=== PATIENT | male | born 1965 | race Caucasian/White ===

== ENCOUNTER 2018-02-08 02:34 | Emergency (ER) | payer BC ==
[2018-02-08] MEDS ORDERED: SODIUM CHLORIDE 0.9% 500 ML 500 ML IV ONE (03:23)
[2018-02-08] MEDS ORDERED: ORPHENADRINE 30 MG/ML 2 ML VIAL IVP STA (03:23)
--- NOTE | 2018-02-08 03:41 | ED ---
Recheck HPI - General Source: patient, RN notes reviewed Mode of arrival: ambulatory Limitations: no limitations <Olman Ornelas - Last Filed: 02/08/18 03:56> <Pippa Mai - Last Filed: 02/08/18 07:36> - General Chief Complaint: Recheck/Abnormal Lab/Rx Stated Complaint: High BP Time Seen by Provider: 02/08/18 03:13 - History of Present Illness Initial Comments: 52-year-old male presents emergency Department chief complaint headache, hypertension. Patient states she recently saw his PCP for the first time in several years with diagnosed hypertension. Patient was started on metoprolol 25 mg extended release. Patient states that he continued to have hypertension was seen at urgent care yesterday was started on Norvasc 5 mg. Patient woke up today with worsening headache and was still hypertensive. Patient was advised to go to the emergency department. He denies any chest pain or shortness of breath. Patient did have lab work in which he was told he had hyperlipidemia. He states his labs otherwise normal. Patient does complain of mild neck pain was supposed to have x-rays night but did not complete this. Patient states is worse with movement. Patient denies any upper similar weakness. Denies any back pain. (Olman Ornelas) - Related Data Allergies Allergy/AdvReac Type Severity Reaction Status Date / Time No Known Allergies Allergy Verified 02/08/18 02:48 Review of Systems ROS Other: All systems not noted in ROS Statement are negative. <Olman Ornelas - Last Filed: 02/08/18 03:56> ROS Other: All systems not noted in ROS Statement are negative. <Pippa Mai - Last Filed: 02/08/18 07:36> ROS Statement: Those systems with pertinent positive or pertinent negative responses have been documented in the HPI. Past Medical History Past Medical History: Hypertension History of Any Multi-Drug Resistant Organisms: None Reported Past Surgical History: Appendectomy, Orthopedic Surgery Additional Past Surgical History / Comment(s): left shoulder, Past Psychological History: No Psychological Hx Reported Smoking Status: Current every day smoker Past Alcohol Use History: None Reported Past Drug Use History: Marijuana <Olman Ornelas - Last Filed: 02/08/18 03:56> General Exam Limitations: no limitations General appearance: alert, in no apparent distress Head exam: Present: atraumatic, normocephalic, normal inspection Eye exam: Present: normal appearance, PERRL, EOMI. Absent: scleral icterus, conjunctival injection, periorbital swelling ENT exam: Present: normal exam, normal oropharynx, mucous membranes moist, TM's normal bilaterally, normal external ear exam Neck exam: Present: normal inspection, full ROM. Absent: tenderness, meningismus, lymphadenopathy Respiratory exam: Present: normal lung sounds bilaterally. Absent: respiratory distress, wheezes, rales, rhonchi, stridor Cardiovascular Exam: Present: regular rate, normal rhythm, normal heart sounds. Absent: systolic murmur, diastolic murmur, rubs, gallop, clicks Neurological exam: Present: alert, oriented X3, CN II-XII intact, reflexes normal, other (Finger to nose intact bilaterally). Absent: motor sensory deficit Skin exam: Present: warm, dry, intact, normal color. Absent: rash <Olman Ornelas - Last Filed: 02/08/18 03:56> Vital Signs 02/08/18 02/08/18 02/08/18 02:43 04:43 05:12 Temperature 97.4 F L Pulse Rate 70 58 L Respiratory 19 18 Rate Blood Pressure 165/98 210/113 183/100 O2 Sat by Pulse 99 99 Oximetry 02/08/18 02/08/18 05:45 06:58 Temperature 97.0 F L Pulse Rate 63 50 L Respiratory 18 18 Rate Blood Pressure 183/107 164/105 O2 Sat by Pulse 97 99 Oximetry Medical Decision Making <Olman Ornelas - Last Filed: 02/08/18 03:56> - Lab Data Result diagrams: 02/08/18 04:16 02/08/18 04:16 <Pippa Mai P - Last Filed: 02/08/18 07:36> - Lab Data Lab Results 02/08/18 02/08/18 02/08/18 Range/Units 04:16 04:16 04:16 WBC 7.1 (3.8-10.6) k/uL RBC 4.61 (4.30-5.90) m/uL Hgb 14.3 (13.0-17.5) gm/dL Hct 42.4 (39.0-53.0) % MCV 91.8 (80.0-100.0) fL MCH 31.0 (25.0-35.0) pg MCHC 33.7 (31.0-37.0) g/dL RDW 13.5 (11.5-15.5) % Plt Count 144 L (150-450) k/uL Neutrophils % 40 % Lymphocytes % 47 % Monocytes % 6 % Eosinophils % 4 % Basophils % 0 % Neutrophils # 2.8 (1.3-7.7) k/uL Lymphocytes # 3.4 (1.0-4.8) k/uL Monocytes # 0.4 (0-1.0) k/uL Eosinophils # 0.3 (0-0.7) k/uL Basophils # 0.0 (0-0.2) k/uL Sodium 139 (137-145) mmol/L Potassium 4.0 (3.5-5.1) mmol/L Chloride 105 (98-107) mmol/L Carbon Dioxide 27 (22-30) mmol/L Anion Gap 7 mmol/L BUN 19 (9-20) mg/dL Creatinine 0.81 (0.66-1.25) mg/dL Est GFR (CKD-EPI)AfAm >90 (>60 ml/min/1.73 sqM) Est GFR (CKD-EPI)NonAf >90 (>60 ml/min/1.73 sqM) Glucose 98 (74-99) mg/dL Calcium 9.3 (8.4-10.2) mg/dL Total Bilirubin 0.6 (0.2-1.3) mg/dL AST 32 (17-59) U/L ALT 38 (21-72) U/L Alkaline Phosphatase 76 (38-126) U/L Troponin I <0.012 (0.000-0.034) ng/mL Total Protein 6.5 (6.3-8.2) g/dL Albumin 4.0 (3.5-5.0) g/dL - EKG Data EKG Comments: EKG performed at 3:51 sinus bradycardia with sinus rhythm left axis deviation with a rate of 54 NH 170 QRS 98 QT/QTC 488/462 (Olman Ornelas) Disposition <Olman Ornelas - Last Filed: 02/08/18 03:56> Is patient prescribed a controlled substance at d/c from ED?: No <Pippa Mai - Last Filed: 02/08/18 07:36> Clinical Impression: Hypertension Disposition: HOME SELF-CARE Condition: Good Instructions: Hypertension (ED), DASH Eating Plan (ED), Low-Sodium Diet (ED) Referrals: Jose L Colón DO [Primary Care Provider] - 1-2 days
--- NOTE | 2018-02-08 04:25 | CT ---
EXAMINATION TYPE: CT brain allyn [facility] con DATE OF EXAM: 02/08/2018 COMPARISON: None HISTORY: headache Headache and neck pain CT DLP: mGycm Automated exposure control for dose reduction was used. TECHNIQUE: CT scan of the head and cervical spine are performed without contrast. FINDINGS: Ventricles of normal size. There is no mass effect nor midline shift. There is no sign of intracranial hemorrhage. Calvarium is intact. Skull base appears intact. The cervical vertebra have fairly normal spacing and alignment. Posterior elements are intact. There is minor spurring of the endplates. The facet joints appear intact. There is some uncovertebral spurr ing and mild encroachment on the spinal canal in the C5-6 level. Prevertebral soft tissues are not en larged. IMPRESSION: Negative CT scan of the brain. Mild spondylotic changes in the cervical spine. No fracture.
[2018-02-08 04:29] LABS: Basophils % (A) 0 %; Eosinophils # (A) 0.3 k/uL (0-0.7); Eosinophils % (A) 4 %; HCT 42.4 % (39.0-53.0); HGB 14.3 gm/dL (13.0-17.5); Lymphocytes # (A) 3.4 k/uL (1.0-4.8); Lymphocytes % (A) 47 %; MCHC 33.7 g/dL (31.0-37.0); MCV 91.8 fL (80.0-100.0); Mean Platelet Volume 7.3; Monocytes # (A) 0.4 k/uL (0-1.0); Monocytes % (A) 6 %; Neutrophils # (A) 2.8 k/uL (1.3-7.7); Neutrophils % (A) 40 %; Platelet Count 144 k/uL (150-450); RBC 4.61 m/uL (4.30-5.90); RDW 13.5 % (11.5-15.5); WBC 7.1 k/uL (3.8-10.6)
[2018-02-08 04:37] LABS: ALT 38 U/L (21-72); AST 32 U/L (17-59); Alkaline Phosphatase 76 U/L (38-126); Anion Gap 7 mmol/L; Blood Urea Nitrogen 19 mg/dL (9-20); Calcium 9.3 mg/dL (8.4-10.2); Carbon Dioxide 27 mmol/L (22-30); Chloride 105 mmol/L (98-107); Glucose 98 mg/dL (74-99); Sodium 139 mmol/L (137-145); Total Bilirubin 0.6 mg/dL (0.2-1.3); Total Protein 6.5 g/dL (6.3-8.2)
[2018-02-08 04:45] VITALS: RESP 18
[2018-02-08] MEDS ORDERED: cloNIDine HCL 0.1 MG TAB PO STA (05:53)
[2018-02-08] MEDS ORDERED: ACETAMINOPHEN TAB 325 MG TAB PO STA (06:55)
[2018-02-08 08:13] VITALS: BP 161/101; PULSE 64; TEMP 98.1
== END 2018-02-08 08:11 | disposition home or self-care (01) ==
LOC: EC 02:34
DX: I10 Essential (primary) hypertension (principal); R51 Headache; M54.2 Cervicalgia; F17.200 Nicotine dependence, unspecified, uncomplicated
CPT/HCPCS: 36415; 93005; 80053; 84484; 85025; 72125; 70450; 99284; 96374; 96361 ×2; J2360

== ENCOUNTER 2020-07-25 11:22 | Day surgery (SDC) | payer BC ==
[2020-07-20 10:31] VITALS: BMI 22.0
[~2020-07-25 11:22] MED LIST: LACTATED RINGERS 1,000 ML IV SCH; LIDOCAINE 1% (10MG/ML) FOR IV START INTRADERMA PRN
[2020-07-25 11:58] VITALS: RESP 16; TEMP 97.9
[2020-07-25] MEDS ORDERED: PROPOFOL 10 MG/ML 20 ML VIAL IV ONE (12:27)
--- NOTE | 2020-07-25 12:30 | P.GSHP ---
History of Present Illness H&P Date: 07/25/20 Chief Complaint: Colon cancer screening Patient here today for colonoscopy. He has not had 1 previously. No bowel related complaints. No family history of colon cancer. Past Medical History Past Medical History: Hyperlipidemia, Hypertension History of Any Multi-Drug Resistant Organisms: None Reported Past Surgical History: Appendectomy, Orthopedic Surgery Additional Past Surgical History / Comment(s): left shoulder, Past Anesthesia/Blood Transfusion Reactions: No Reported Reaction Smoking Status: Current every day smoker - Past Family History Mother Family Medical History: No Reported History Medications and Allergies Home Medications Medication Instructions Recorded Confirmed Type Metoprolol Succinate [Toprol XL] 25 mg PO DAILY 07/20/20 07/25/20 History Rosuvastatin Calcium 5 mg PO DAILY 07/20/20 07/25/20 History amLODIPine BESYLATE/BENAZEPRIL 1 cap PO DAILY 07/20/20 07/25/20 History [Lotrel 5-10 MG] Allergies Allergy/AdvReac Type Severity Reaction Status Date / Time No Known Allergies Allergy Verified 07/25/20 11:59 Surgical - Exam Vital Signs Temp Pulse Resp BP Pulse Ox 97.9 F 76 16 137/86 99 07/25/20 11:57 07/25/20 11:57 07/25/20 11:57 07/25/20 11:57 07/25/20 11:57 Physical exam: General: Well-developed, well-nourished HEENT: Normocephalic, sclerae nonicteric Abdomen: Nontender, nondistended Extremities: No edema Neuro: Alert and oriented Assessment and Plan (1) Colon cancer screening Narrative/Plan: Will proceed with colonoscopy Current Visit: Yes Status: Acute Code(s): Z12.11 - ENCOUNTER FOR SCREENING FOR MALIGNANT NEOPLASM OF COLON SNOMED Code(s): 531130952
--- NOTE | 2020-07-25 12:44 | P.PCN ---
Date of Procedure: 07/25/20 Procedure(s) Performed: PREOPERATIVE DIAGNOSIS: Colon cancer screening POSTOPERATIVE DIAGNOSIS: Normal exam PROCEDURE: Colonoscopy ANESTHESIA: MAC SURGEON: Roge Moulton M.D. SPECIMENS: None ENDOSCOPIC PROCEDURE: The patient was placed on the endoscopy table in the left decubitus position. The Olympus colonoscope was inserted into the anus and passed under direct visualization to the base of the cecum. The appendiceal orifice was visualized. From that point the scope was slowly withdrawn inspecti ng all surfaces carefully. There were no neoplastic inflammatory or polypoid lesions throughout the cecum, ascending, transverse, descending, sigmoid and rectum. There was no visible diverticulosis noted. Digital rectal examination was normal. The patient was taken to the recovery room in stable condition per anesthesia guidelines. RECOMMENDATIONS: Resume diet. Follow-up colonoscopy 10 years.
[2020-07-25 13:03] VITALS: BP 132/76; PULSE 60
== END 2020-07-25 13:25 | disposition home or self-care (01) ==
LOC: ORWHC2ENDO 11:22
PROVIDERS: ATTEND Surgery
DX: Z12.11 Encounter for screening for malignant neoplasm of colon (principal); E78.5 Hyperlipidemia, unspecified; I10 Essential (primary) hypertension; F17.210 Nicotine dependence, cigarettes, uncomplicated; Z79.899 Other long term (current) drug therapy; Z98.890 Other specified postprocedural states
CPT/HCPCS: J2704; G0121